=== PATIENT | female | born 1960 | race Two or more races ===

== ENCOUNTER 2020-04-07 11:41 | Emergency (ER) | payer OTHER ==
[~2020-04-07] VITALS: Ht 160 cm; Wt 72.6 kg
== END 2020-04-07 15:19 | disposition home or self-care (01) ==
LOC: ER 11:41
DX: S82.61XA Displaced fracture of lateral malleolus of right fibula, initial encounter for closed fracture (principal); W18.39XA Other fall on same level, initial encounter; Y93.89 Activity, other specified; Y92.098 Other place in other non-institutional residence as the place of occurrence of the external cause; Y99.8 Other external cause status